=== PATIENT | female | born 1945 | race Two or more races ===

== ENCOUNTER 2022-06-07 09:04 | Inpatient (IN) | payer OTHER ==
[~2022-06-07] VITALS: Ht 152.4 cm; Wt 73.9 kg
[2022-06-07] MEDS ORDERED: METFORMIN HCL1000 M2 PO (14:35)
[2022-06-07] MEDS ORDERED: B12 ACTIVE1000 MCG PO (14:36)
[2022-06-07] MEDS ORDERED: VOLTAREN PO (14:36)
[2022-06-07] MEDS ORDERED: OMEGA 3-6-9 CO400 MG PO (14:37)
[2022-06-13] MEDS ORDERED: DICLOFENAC SODI75 MG (16:16)
[2022-06-16] MEDS ORDERED: HYOSCYAMINE0.125 M1 SL (10:29)
== END 2022-06-16 11:39 | disposition home or self-care (01) | DRG 331 ==
LOC: SURH 06-13 10:30 → O/R 06-13 11:16 → SURH 06-13 19:16
PROVIDERS: ADMIT Surgery; ATTEND Surgery
PROC: 0DBP4ZZ Excision of Rectum, Percutaneous Endoscopic Approach (ICD-10-PCS; 2022-06-13)
PROC: 07BC4ZZ Excision of Pelvis Lymphatic, Percutaneous Endoscopic Approach (ICD-10-PCS; 2022-06-13)
PROC: 0DJD8ZZ Inspection of Lower Intestinal Tract, Via Natural or Artificial Opening Endoscopic (ICD-10-PCS; 2022-06-13)
PROC: 0UT14ZZ Resection of Left Ovary, Percutaneous Endoscopic Approach (ICD-10-PCS; 2022-06-13)
PROC: 0WBH4ZZ Excision of Retroperitoneum, Percutaneous Endoscopic Approach (ICD-10-PCS; 2022-06-13)
PROC: 3E1M48Z Irrigation of Peritoneal Cavity using Irrigating Substance, Percutaneous Endoscopic Approach (ICD-10-PCS; 2022-06-13)
PROC: 0DTN4ZZ Resection of Sigmoid Colon, Percutaneous Endoscopic Approach (ICD-10-PCS; principal; 2022-06-13 10:30)
DX: D12.7 Benign neoplasm of rectosigmoid junction (principal); D27.1 Benign neoplasm of left ovary; Z20.822 Contact with and (suspected) exposure to COVID-19